=== PATIENT | male | born 1970 | race Caucasian/White ===

== ENCOUNTER → 2017-01-06 | Outpatient (CLI) | payer MEDICAID ==
[2017-01-06 16:39] LABS: Basophils # (A) 0.1 k/uL (0-0.2); Basophils % (A) 1 %; CH 31.4; CHCM 34.8; Eosinophils # (A) 0.6 k/uL (0-0.7); Eosinophils % (A) 6 %; HCT 45.7 % (39.0-53.0); HDW 2.87; HGB 15.4 gm/dL (13.0-17.5); Luc # (Auto) 0.28; Luc % (Auto) 3; Lymphocytes # (A) 2.3 k/uL (1.0-4.8); Lymphocytes % (A) 24 %; MCH 30.5 pg (25.0-35.0); MCHC 33.6 g/dL (31.0-37.0); MCV 90.7 fL (80.0-100.0); Monocytes # (A) 0.6 k/uL (0-1.0); Monocytes % (A) 6 %; Neutrophils # (A) 5.6 k/uL (1.3-7.7); Neutrophils % (A) 60 %; RBC 5.04 m/uL (4.30-5.90); RDW 13.5 % (11.5-15.5); WBC 9.4 k/uL (3.8-10.6); WBC (Perox) 9.38
[2017-01-06 16:49] LABS: ALT 103 U/L (21-72); AST 58 U/L (17-59); Alkaline Phosphatase 44 U/L (38-126); Anion Gap 12 mmol/L; Blood Urea Nitrogen 14 mg/dL (9-20); Calcium 9.7 mg/dL (8.4-10.2); Carbon Dioxide 26 mmol/L (22-30); Chloride 104 mmol/L (98-107); Cholesterol 153 mg/dL (<200); Glucose 86 mg/dL (74-99); HDL Cholesterol 52 mg/dL (40-60); Non-African American GFR(MDRD) >60 (>60 ml/min/1.73 sqM); Potassium 4.6 mmol/L (3.5-5.1); Sodium 142 mmol/L (137-145); Total Bilirubin 0.8 mg/dL (0.2-1.3); Total Protein 7.4 g/dL (6.3-8.2); Triglycerides 79 mg/dL (<150); Uric Acid 6.7 mg/dL (3.5-8.5)
== END | disposition home or self-care (01) ==
LOC: LABWHC1 16:01
PROVIDERS: ATTEND Family Medicine
DX: M10.9 Gout, unspecified (principal); E03.9 Hypothyroidism, unspecified
CPT/HCPCS: 36415; 80053; 80061; 84439; 84443; 84481; 84550; 85025

== ENCOUNTER → 2017-03-17 | Outpatient (CLI) | payer MEDICAID ==
[2017-03-17 08:25] LABS: ALT 98 U/L (21-72); AST 41 U/L (17-59); Alkaline Phosphatase 48 U/L (38-126); Anion Gap 9 mmol/L; Blood Urea Nitrogen 15 mg/dL (9-20); Calcium 9.2 mg/dL (8.4-10.2); Carbon Dioxide 27 mmol/L (22-30); Chloride 106 mmol/L (98-107); Glucose 116 mg/dL (74-99); Non-African American GFR(MDRD) >60 (>60 ml/min/1.73 sqM); Potassium 4.8 mmol/L (3.5-5.1); Sodium 142 mmol/L (137-145); Total Bilirubin 0.3 mg/dL (0.2-1.3); Total Protein 6.8 g/dL (6.3-8.2)
== END | disposition home or self-care (01) ==
LOC: LABWHC1 07:18
PROVIDERS: ATTEND Family Medicine
DX: Z00.00 Encounter for general adult medical examination without abnormal findings (principal)
CPT/HCPCS: 36415; 80053

== ENCOUNTER → 2017-03-18 | Outpatient (CLI) | payer MEDICAID | LOC: LABWHC1 13:36 | PROVIDERS: ATTEND Family Medicine | DX: E03.9 Hypothyroidism, unspecified (principal) | CPT/HCPCS: 36415; 84439; 84443; 84481 ==

== ENCOUNTER → 2017-09-25 | Outpatient (CLI) | payer OTHER, MEDICAID ==
[2017-09-25 21:08] LABS: ALT 84 U/L (21-72); AST 52 U/L (17-59); Albumin 4.7 g/dL (3.5-5.0); Alkaline Phosphatase 47 U/L (38-126); Anion Gap 12 mmol/L; Blood Urea Nitrogen 18 mg/dL (9-20); Calcium 9.8 mg/dL (8.4-10.2); Carbon Dioxide 29 mmol/L (22-30); Chloride 99 mmol/L (98-107); Cholesterol 168 mg/dL (<200); Glucose 92 mg/dL (74-99); HDL Cholesterol 50 mg/dL (40-60); LDL Cholesterol,Calculated 102 mg/dL (0-99); Magnesium 2.2 mg/dL (1.6-2.3); Potassium 4.1 mmol/L (3.5-5.1); Sodium 140 mmol/L (137-145); Total Bilirubin 0.7 mg/dL (0.2-1.3); Total Protein 7.7 g/dL (6.3-8.2); Triglycerides 78 mg/dL (<150)
[2017-09-25 21:23] LABS: T4, Free (Free Thyroxine) 1.25 ng/dL (0.78-2.19)
[2017-09-25 21:45] LABS: Basophils # (A) 0.1 k/uL (0-0.2); Basophils % (A) 1 %; Eosinophils # (A) 0.4 k/uL (0-0.7); Eosinophils % (A) 5 %; HCT 48.9 % (39.0-53.0); HGB 16.1 gm/dL (13.0-17.5); Lymphocytes # (A) 2.4 k/uL (1.0-4.8); Lymphocytes % (A) 30 %; MCH 30.2 pg (25.0-35.0); MCHC 32.9 g/dL (31.0-37.0); MCV 91.7 fL (80.0-100.0); Mean Platelet Volume 8.3; Monocytes # (A) 0.5 k/uL (0-1.0); Monocytes % (A) 6 %; Neutrophils # (A) 4.4 k/uL (1.3-7.7); Neutrophils % (A) 55 %; Platelet Count 247 k/uL (150-450); RBC 5.33 m/uL (4.30-5.90); RDW 14.6 % (11.5-15.5)
[2017-09-26 12:02] LABS: Vitamin D 25 Hydroxy 10.1 ng/mL (30.0-100.0)
== END | disposition home or self-care (01) ==
LOC: MMGSC 16:42
PROVIDERS: ATTEND Family Medicine
DX: Z00.00 Encounter for general adult medical examination without abnormal findings (principal); R20.2 Paresthesia of skin
CPT/HCPCS: 36415; 80053; 80061; 82306; 82607; 83735; 84439; 84443; 85025

== ENCOUNTER → 2018-12-06 | Outpatient (CLI) | payer MEDICAID ==
[~2018-12-06] MED LIST: REGADENOSON 0.4 MG/5 ML SYRINGE IV ONE
--- NOTE | 2018-12-06 13:18 | EST ---
EXERCISE STRESS DATE OF SERVICE: 12/06/2018 AGE: 48 SEX: Male HT: 5'10" WT: 280 pounds PROTOCOL: Lexiscan Cardiolite STAGE: DURATION OF EXERCISE: HEART RATE REST: 69 BLOOD PRESSURE REST: 133/83 MAXIMUM HEART RATE ACHIEVED: 112 MAXIMUM BLOOD PRESSURE: 144/70 85% MPHR: 146 100% MPHR: 172 METS: INDICATIONS: Chest pain. CLINICAL INFORMATION: STRESS DATA: Pretesting physical examination showed heart rate of 69; pressure is 133/83 mmHg. Baseline EKG showed sinus mechanism. The 0.4 mg of Lexiscan given over 15 seconds per protocol. Max heart rate 112 beats per minute and maximum pressure was 144/70 mmHg. Clinically the patient did not have any symptoms of chest pain, but he developed some shortness of breath and the EKG did not show any significant ST or T- wave abnormalities concerning for ischemia. CONCLUSION: 1. Nondiagnostic electrocardiogram stress testing in response to Lexiscan. 2. Please follow up on the Cardiolite portion on separate report from Radiology Department. MMODL / IJN: [id number] /
--- NOTE | 2018-12-06 15:39 | NM ---
EXAMINATION TYPE: NM stress lexiscan cardiolite DATE OF EXAM: 12/06/2018 COMPARISON: NONE HISTORY: Chest pain TECHNIQUE: After the intravenous administration of 10.2 mCi Tc 99m Sestamibi - Cardiolite resting SP ECT images acquired 45 minutes post injection. The patient received 0.4mg Lexiscan, 25.5 mCi Tc 99m Sestamibi - Stress images obtained [address] injection FINDINGS: Review of stress and rest SPECT images demonstrates no distinct perfusion abnormality. Gated analysi s shows normal wall motion with an estimated left ventricular ejection fraction of 51 %. IMPRESSION: No scintigraphic evidence for reversible ischemia.
== END ==
LOC: RADNMMAIN 08:11
PROVIDERS: ATTEND Family Medicine
DX: R07.89 Other chest pain (principal)
CPT/HCPCS: 93017; 78452; A9500

== ENCOUNTER → 2019-09-05 | Outpatient (CLI) | payer MEDICAID ==
--- NOTE | 2019-09-05 15:43 | US ---
EXAMINATION TYPE: US pelvic limited DATE OF EXAM: 09/05/2019 COMPARISON: NONE CLINICAL HISTORY: R10.11 RT upper quadrant pain , R10.12. Patient stated c/o bilateral abdomen pain, but now gone; prior renal stones; hematuria; gallbladder removed. TECHNIQUE: Transabdominal sonographic images of the male pelvis were acquired. Bladder US: wnl; bilateral ureteral jets were seen; post void volume is wnl with volume = 26.0ml. IMPRESSION: Normal post void residual of the urinary bladder. Urinary bladder is unremarkable with bi lateral urinary bladder jets visualized.
--- NOTE | 2019-09-05 15:44 | US ---
EXAMINATION TYPE: US axilla LT DATE OF EXAM: 09/05/2019 COMPARISON: NONE CLINICAL HISTORY: R10.11 RT upper quadrant pain , R10.12. Left axillary palpable; HT5'10" , WT 280lbs . TECHNIQUE/FINDINGS: US left axilla: multiple lymph nodes are seen in axilla. Lymph node size at [facility] ent's palpable on initial images = 3.5 x 2.3 x 1.1cm. Very mild cortical thickening measuring 4 mm. F atty hilum is maintained. IMPRESSION: Mildly enlarged left axillary lymph node. Recommendation is for follow-up ultrasound in 3 months. If this is enlarged at that time biopsy could be considered.
--- NOTE | 2019-09-05 15:50 | US ---
EXAMINATION TYPE: US abdomen complete DATE OF EXAM: 09/05/2019 COMPARISON: NONE CLINICAL HISTORY: R10.11 RT upper quadrant pain , R10.12. Bilateral lateral abdominal pain now subsid ed; gallbladder removed; prior renal stones;hematuria; hernia at umbilicus per patient; Ht5'10", WT 2 80lbs. EXAM MEASUREMENTS: Liver Length: 16.9 cm Gallbladder Wall: surgically removed CBD: 0.4 cm Spleen: 11.7 cm Right Kidney: 12.0 x 5.6 x 5.3 cm Left Kidney: 11.5 x 6.3 x 5.1 cm Pancreas: tail obscured by overlying bowel gas Liver: There is increased echogenicity of the hepatic parenchyma with diminished visualization of th e portal triads most commonly relating to hepatic steatosis and limiting evaluation for underlying he patic masses. Gallbladder: surgically removed Evidence for sonographic Fox's sign: no CBD: wnl Spleen: wnl Right Kidney: No hydronephrosis or masses seen Left Kidney: mid pole cortex has parallel hyperechoic focus suggesting vascular calcification versus nonobstructing calculus, also lower pole hyperechoic small calcification is noted = 0.4 x 0.4 x 0.2 cm Upper IVC: wnl Abd Aorta: upper aorta not seen due to overlying bowel gas; mid and distal aorta size is wnl Umbilicus US: small hernia is noted at patient's umbilical bulge at left umbilicus as bowel is noted moving anteriorly through abdominal fascial opening with Valsalva Maneuver. IMPRESSION: 1. Sonographic findings most commonly related to hepatic steatosis. Correlate with liver function ashleigh ts. 2. Small periumbilical hernia just left of the umbilicus containing bowel. Correlate clinically for r educibility. 3. Vascular calcifications of the left kidney versus nonobstructing calculi.
== END | disposition home or self-care (01) ==
LOC: RADUSWWP 14:20
PROVIDERS: ATTEND Family Medicine
DX: K76.0 Fatty (change of) liver, not elsewhere classified (principal); K42.9 Umbilical hernia without obstruction or gangrene; R10.12 Left upper quadrant pain; R59.0 Localized enlarged lymph nodes; N63.32 Unspecified lump in axillary tail of the left breast
CPT/HCPCS: 76700; 76857

== ENCOUNTER 2019-11-10 11:45 | Day surgery (SDC) | payer MEDICAID ==
[2019-11-10 13:24] VITALS: BP 126/81; PULSE 92; RESP 16; TEMP 98.1
[2019-11-10] MEDS ORDERED: RX INFO: IV CONTRAST WAS GIVEN 1 EACH MISC MISCELLANE PRN (13:49)
--- NOTE | 2019-11-10 13:49 | P.PN ---
Progress Note - Text Progress Note Date: 11/10/19 Notified by radiology that patient has suspicious lesion of the axilla separate from lymph node. Per request of radiologist, CT chest advised. I'm agreeable with suggestions by the radiologist for CT scan of the chest
--- NOTE | 2019-11-10 14:46 | CT ---
EXAMINATION TYPE: CT chest w con DATE OF EXAM: 11/10/2019 COMPARISON: Ultrasound 09/05/2019 HISTORY: Lump under Lt arm, not palpable at time of exam CT DLP: 680.7 mGycm Automated exposure control for dose reduction was used. CONTRAST: CT scan of the chest is performed with IV Contrast, patient injected with 100 mL of Isovue 300. FINDINGS: LUNGS: The lungs are grossly clear, there is no concerning parenchymal mass or nodule identified. T here is no pleural effusion or pneumothorax seen. The tracheobronchial tree is patent. MEDIASTINUM: There are no greater than 1 cm hilar or mediastinal lymph nodes. No pericardial effusi on is seen. OTHER: Overlying the area of palpable abnormality there is no cysts solid-appearing mass. There is f at attenuation with suggestion poorly defined capsule at the level the axilla and above which could r epresent a lipoma measuring approximately 6 cm. Ultrasound demonstrated axillary lymph node is not se en on CT scan... Fat attenuation in the liver is nonspecific but suggestive of hepatic steatosis. Surgical clip in the gallbladder fossa is noted. Osseous fat attenuation along the musculature of the upper abdomen on th e left measuring 1 cm which could represent a small intramuscular lipoma best noted on axial image 68 . IMPRESSION: 1. There is no definite suspicious appearing mass in the area of palpable abnormality. However, there is a suggestion of fat attenuation with possible capsule in the area of palpable abnormality measuri ng about 6.4 cm which could represent a soft tissue lipoma. Correlate clinically. 2. There is no evidence of a lymph node within the left axilla by CT scan. 3. Hepatic steatosis
--- NOTE | 2019-11-10 15:06 | US ---
EXAMINATION TYPE: US axilla LT DATE OF EXAM: 11/10/2019 COMPARISON: NONE CLINICAL HISTORY: D63.7 axillary lymph node. FINDINGS: There is a questionable oval-shaped lymph node measuring 2.3 x 1 cm. However, the patient states this is not the area palpable abnormality that he is palpate. He declined biopsy of the questionable lymp h node. Consider CT of the chest to evaluate the area the patient complains of palpable abnormality IMPRESSION: Patient deferred biopsy
== END 2019-11-10 14:34 | disposition home or self-care (01) ==
LOC: RADPROMAIN 11:45
PROVIDERS: ATTEND Surgery Plastic and Reconstructive Surgery
DX: R93.89 Abnormal findings on diagnostic imaging of other specified body structures (principal); K76.0 Fatty (change of) liver, not elsewhere classified; Z53.8 Procedure and treatment not carried out for other reasons
CPT/HCPCS: 36415; 76882; 71260; Q9967

== ENCOUNTER → 2020-03-15 | Outpatient (CLI) | payer MEDICAID ==
--- NOTE | 2020-03-15 11:06 | MM ---
Reason for exam: clinical finding. Physical Findings: Nurse Summary: 3cm nodule in the left breast at 1 o'clock (nurse TM). MG 3D Diag Mammo W/Cad JUANA Bilateral CC, MLO, and XCCL view(s) were taken. The breast tissue is almost entirely fat. There is no discrete abnormality. No significant new findings when compared with previous films. These results were verbally communicated with the patient and result sheet given to the patient on 03/15/20. ASSESSMENT: Benign, BI-RAD 2 RECOMMENDATION: Clinical management of both breasts.
--- NOTE | 2020-03-15 11:07 | USB ---
Reason for exam: clinical finding. US Breast Axilla LT Left axilla ultrasound demonstrates a 4.7 x 4.5 x 1.9cm oval, lobular, vascular, mildly hyperechoic lesion at the axilla. These results were verbally communicated with the patient and result sheet given to the patient on 03/15/20. ASSESSMENT: Benign, BI-RAD 2 RECOMMENDATION: Clinical management of the left breast.
== END | disposition home or self-care (01) ==
LOC: RADMAMWWP 10:05
PROVIDERS: ATTEND Surgery Plastic and Reconstructive Surgery
DX: D36.7 Benign neoplasm of other specified sites (principal); Z91.09 Other allergy status, other than to drugs and biological substances
CPT/HCPCS: 77062; 77066

== ENCOUNTER → 2020-05-17 | Outpatient (CLI) | payer MEDICAID | END | disposition home or self-care (01) | LOC: LABWHC1 11:02 | PROVIDERS: ATTEND Surgery Plastic and Reconstructive Surgery | DX: Z01.810 Encounter for preprocedural cardiovascular examination (principal); R07.89 Other chest pain | CPT/HCPCS: 36415; 93005 ==

== ENCOUNTER → 2020-05-28 | Outpatient (CLI) | payer MEDICAID ==
--- NOTE | 2020-05-28 12:00 | XR ---
EXAMINATION TYPE: XR foot complete LT DATE OF EXAM: 05/28/2020 COMPARISON: NONE HISTORY: Pain TECHNIQUE: Three views are submitted. FINDINGS: The osseous structures are intact. There is no acute fracture or dislocation. There is arthropathy of the first MTP. Small spur at the base of the fifth metatarsal. IMPRESSION: 1. Arthropathy of the first MTP with soft tissue fullness. Differential diagnosis would include gout. Other etiologies including soft tissue infection in the differential diagnosis correlate clinically. .
== END | disposition home or self-care (01) ==
LOC: RADXRMAIN 11:15
PROVIDERS: ATTEND Podiatrist Foot Surgery
DX: M19.072 Primary osteoarthritis, left ankle and foot (principal); M10.072 Idiopathic gout, left ankle and foot; M79.672 Pain in left foot

== ENCOUNTER 2023-09-13 10:36 | Emergency (ER) | payer BC, OTHER ==
[2023-09-13 10:49] VITALS: RESP 18
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
[2023-09-13] MEDS ORDERED: KETOROLAC 15 MG/ML 1 ML VIAL IM STA (11:31)
[2023-09-13 12:20] VITALS: BP 145/81; PULSE 93; TEMP 98.7
== END 2023-09-13 12:02 | disposition home or self-care (01) ==
LOC: EC 10:36
DX: S40.011A Contusion of right shoulder, initial encounter (principal); I10 Essential (primary) hypertension; E07.9 Disorder of thyroid, unspecified; K21.9 Gastro-esophageal reflux disease without esophagitis; Z79.890 Hormone replacement therapy; Z79.899 Other long term (current) drug therapy; Z90.49 Acquired absence of other specified parts of digestive tract; Z91.048 Other nonmedicinal substance allergy status; V86.95XA Unspecified occupant of 3- or 4- wheeled all-terrain vehicle (ATV) injured in nontraffic accident, initial encounter
CPT/HCPCS: 73030; 71046; 99283; 96372; J1885

== ENCOUNTER → 2024-04-04 | Outpatient (CLI) | payer MEDICAID | END | disposition home or self-care (01) | LOC: LABWHC1 12:54 | PROVIDERS: ATTEND Family Medicine | DX: Z01.812 Encounter for preprocedural laboratory examination (principal); E11.9 Type 2 diabetes mellitus without complications | CPT/HCPCS: 85610; 85730 ==